=== PATIENT | female | born 1935 | race Caucasian/White ===

== ENCOUNTER → 2020-07-01 14:10 | Outpatient (BNVA) | payer MEDICARE, SELFPAY | PROVIDERS: PCP Family Medicine; Visit Provider Surgery | DX: K62.0 Anal polyp (principal) | CPT/HCPCS: 99212 ==

== ENCOUNTER → 2021-01-13 13:00 | Outpatient (BNVA) | payer MEDICARE, SELFPAY | PROVIDERS: PCP Family Medicine; Referring Provider Family Medicine; Visit Provider Surgery | DX: Z87.19 Personal history of other diseases of the digestive system (principal) | CPT/HCPCS: 46600; 99212 ==

== ENCOUNTER → 2021-11-25 12:42 | Outpatient (BNVA) | payer OTHER, SELFPAY | PROVIDERS: PCP Family Medicine; Visit Provider Surgery | DX: Z87.19 Personal history of other diseases of the digestive system (principal) | CPT/HCPCS: 46600; 99212 ==

== ENCOUNTER 2023-09-17 12:17 | Emergency (ER) | payer OTHER, SELFPAY ==
[2023-09-17 12:23] VITALS: BP 136/88; PULSE 122; O2SAT 99
[2023-09-17 12:27] VITALS: BP 173/95; PULSE 91; RESP 15; TEMP 36.6; O2SAT 98; BMI 25.1
[2023-09-17] MEDS: 0.9 % Sodium Chloride 1,000 ML 999 ML IV (12:48)
[2023-09-17] MEDS: Morphine Sulfate 2 MG/ML CARTRIDGE IVPUSH (12:51)
[2023-09-17] MEDS: valACYclovir HCL 1,000 MG TABLET 1000 MG PO (12:51)
[2023-09-17 12:56] LABS: Basophils Percent Auto 0.5 % (0-2); Eosinophils Absolute Auto 0.1 X10*3/uL (0.0-0.4); Eosinophils Percent Auto 1.6 % (0-4); Hematocrit 43.3 % (37.0-47.0); Hemoglobin 14.9 g/dl (12.0-16.0); Imm Gran Abs Auto 0.02 X10*3/uL (0.00-0.03); Imm Gran Pct Auto 0.3 % (0.0-0.4); Lymphocytes Absolute Auto 0.9 X10*3/uL (1.2-4.9); Lymphocytes Percent Auto 13.5 % (20-40); MANUAL DIFF FLAG NO; Mean Corpuscular HGB Conc 34.4 g/dl (31.0-35.0); Mean Corpuscular Hemoglobin 29.8 pg (27.0-33.0); Mean Corpuscular Volume 86.6 fL (80.0-98.0); Mean Platelet Volume 10.1 fL (9.4-12.3); Monocytes Absolute Auto 0.6 X10*3/uL (0.1-1.2); Monocytes Percent Auto 9.3 % (2-11); Neutrophils Absolute Auto 4.8 x10*3/uL (2.0-8.3); Neutrophils Percent Auto 74.8 % (45-73); Platelet Count 225 X10*3/uL (160-400); Red Cell Distribution Width 12.6 % (11.0-16.0); White Blood Count 6.4 X10*3/uL (4.8-10.8)
--- NOTE | 2023-09-17 13:06 | ED.GENADULT ---
HPI - General Adult General Chief complaint: General Medical Stated complaint: SHINGLES W/PAIN PER EMS Time Seen by Provider: 09/17/23 12:28 Source: patient, EMS and clerical investigator Mode of arrival: EMS Limitations: language barrier ( declined clerical investigator services) History of Present Illness ED Provider: Itzel Jones APRN HPI narrative: 88-year-old female with a history of hypertension and hyperlipidemia presents to the ER with complaints of painful rash to the left flank and left upper abdomen for the last 2 days. Per patient she started to experience some pain to the area about 4 days ago but did not notice the rash till yesterday. She denies any fevers, chills, flu-like symptoms. She has been taking Tylenol at home with continued pain. Per family the patient has not had much to eat or drink secondary to the pain. Related Data Home Medications ?Medication ?Instructions ?Recorded ?Confirmed amlodipine 10 mg-valsartan 160 1 tab PO DAILY 07/01/20 11/25/21 mg-hydrochlorothiazide 12.5 mg tablet aspirin 81 mg tablet,delayed 81 mg PO DAILY 07/01/20 11/25/21 release atorvastatin 20 mg tablet 20 mg PO DAILY 07/01/20 11/25/21 cholecalciferol (vitamin D3) 25 25 mcg PO DAILY 07/01/20 11/25/21 mcg (1,000 unit) tablet docusate sodium 100 mg capsule 100 mg PO BID 07/01/20 11/25/21 loratadine 10 mg tablet 10 mg PO DAILY 07/01/20 11/25/21 melatonin 3 mg tablet 3 mg PO BEDTIME PRN 07/01/20 11/25/21 Previous Rx's ?Medication ?Instructions ?Recorded hydrocortisone 2.5 % topical cream 1 appl PA BID PRN hemorrhoids #30 02/10/21 with perineal applicator grams hydrocortisone acetate 25 mg 25 mg PA BID PRN hemorrhoids #24 ea 08/13/21 rectal suppository (Anucort-HC) hydrocortisone acetate 25 mg 25 mg PA BID #24 ea 09/30/21 rectal suppository (Anusol-HC) hydrocortisone acetate 25 mg 25 mg PA BID PRN anal burning pain 11/25/21 rectal suppository (Anucort-HC) #24 ea gabapentin 100 mg capsule 100 mg PO TID PRN pain #15 caps 09/17/23 valacyclovir 1 gram tablet 1,000 mg PO BID #21 tabs 09/17/23 (Valtrex) Allergies Allergy/AdvReac Type Severity Reaction Status Date / Time Iodinated Contrast Media Allergy Intermediate SOB, Verified 09/17/23 12:29 [IV CONTRAST] WHEEZING Review of Systems Review of Systems: Yes all other systems are reviewed and are negative Constitutional: Constitutional: Reports no additional constitutional complaints, Denies body ache(s), Denies chills, Denies fever(s), Denies headache(s), Reports poor appetite and Denies weakness Eyes: Eyes: Reports no additional eye complaints and Denies change in vision ENT: Reports system reviewed and no additional complaints, except as documented, Denies dizziness, Denies headache(s), Denies nasal congestion, Denies nasal discharge and Denies neck pain Cardiovascular: Cardiovascular: Reports no additional cardiovascular complaints, Denies chest pain, Denies leg edema and Denies dyspnea Respiratory: Respiratory: Reports no additional respiratory complaints, Denies cough and Denies dyspnea Gastrointestinal: Gastrointestinal: Reports no additional gastrointestinal complaints, Denies abdominal pain, Denies diarrhea, Denies nausea and Denies vomiting Genitourinary: Genitourinary: Reports no additional female genitourinary complaints and Denies urinary incontinence Musculoskeletal: Musculoskeletal: Reports no additional musculoskeletal complaints, Denies back pain, Denies arthralgias, Denies joint swelling, Denies neck pain, Denies numbness and Denies tingling Integumentary/Breasts: Skin/Breast: Reports system reviewed and no additional complaints, except as docu and Reports rash Neurologic: Reports system reviewed and no additional complaints, except as documented, Denies Abnormal speech present, Denies dizziness, Denies headache(s), Denies numbness, Denies tingling and Denies weakness PMF Past Medical History Attestation statement: The following information was validated with the patient. Source: old records reviewed and nursing notes reviewed Medical History History of anal dysplasia Anal polyp Hyperlipidemia Hypertension Chronic constipation Surgical History H/O excision of mass History of laparoscopic cholecystectomy History of colonoscopy History of esophagogastroduodenoscopy (EGD) History of hemorrhoidectomy History of partial hysterectomy History of tubal ligation Social History Social History Advance Directives: Yes Advance Directives Information Provided: Yes Advance Directives on File: No Physical Exam ED Vital Signs: Vital Signs - 24 hr 09/17/23 12:27 09/17/23 13:50 Temperature 98 F 98 F Pulse Rate 91 78 Respiratory Rate 15 17 Blood Pressure 173/95 H 182/81 H Pulse Oximetry 98 98 Oxygen Delivery Method Room Air BMI result Body Mass Index 25.1 Const General: cooperative, healthy appearing, comfortable and no acute distress Orientation/consciousness: patient oriented x3 Limitations: no limitations HENMT Head: Yes normal to inspection Ears: hearing grossly normal bilaterally General nose exam: Normal external nose present Face and sinus: Yes normal facial exam Mouth: Normal oral and palatal mucosa present Throat: Yes posterior oropharynx normal Eyes General: appearance normal, both eyes and all related structures Pupils: Equal, round and reactive pupils present Neck Neck: Yes normal visual inspection Chest Chest palpation & inspection: normal inspection of the chest Resp Effort & Inspection: normal respiratory effort Auscultation: clear to auscultation bilaterally Cardio Rate: regular rate Rhythm: regular rhythm Peripheral pulses: Peripheral pulses 2+ throughout GI Inspection: Yes normal to inspection Palpation (GI): Soft to palpation and nontender Auscultation: normal bowel sounds Back/Spine/Pelvis Thoracic/Lumbar Spine: thoracic and lumbar spine normal to inspection Skin Other: There is a rash noted to the left flank and around to the left upper quadrant. It is blanchable but there are some vesicles present. It is quite painful on palpation. There is no sloughing noted. General skin exam: no rashes or lesions noted Neuro General: patient oriented x3, no focal motor deficits and normal sensation to monofilament Cranial nerves: Yes Equal, round and reactive pupils present Cognition (Neuro): normal cognition Speech: No Abnormal speech present Gait exam (Neuro): Normal gait present Motor exam (neuro): 5/5 motor strength present throughout Extrem General: Yes normal to inspection Medications Administered Discontinued Medications Generic Name Dose Route Start Last Admin Trade Name Freq PRN Reason Stop Dose Admin Sodium Chloride 1,000 mls @ 999 mls/hr 09/17/23 12:38 09/17/23 12:48 Ns IV 09/17/23 13:38 999 mls/hr .Q1H1M STA Administration Morphine Sulfate 2 mg 09/17/23 12:38 09/17/23 12:51 Morphine Sulfate 2 Mg/Ml Cartridge IVPUSH 09/17/23 12:39 2 mg ONCE ONE Administration Protocol Valacyclovir HCl 1,000 mg 09/17/23 12:38 09/17/23 12:51 Valacyclovir Hcl 1,000 Mg Tablet PO 09/17/23 12:39 1,000 mg ONCE ONE Administration Medical Decision Making Medical Decision Making [facility] Narrative: 88-year-old female with a history of hypertension and hyperlipidemia presents to the ER with complaints of painful rash to the left flank and left upper abdomen for the last 2 days. Per patient she started to experience some pain to the area about 4 days ago but did not notice the rash till yesterday. She denies any fevers, chills, flu-like symptoms. She has been taking Tylenol at home with continued pain. Per family the patient has not had much to eat or drink secondary to the pain. There is a rash noted to the left flank and around to the left upper quadrant. It is blanchable but there are some vesicles present. It is quite painful on palpation. There is no sloughing noted. This is consistent with herpes zoster. Patient will need to be discharged with Valtrex and analgesia. Family is concerned that she has had decreased p.o. intake and may be dehydrated. Therefore I will obtain labs and provide 1 L of IV fluid and pain control while she has here in the emergency room. Her vitals are stable. She has moist mucous membranes. I do anticipate that she will likely be discharged home. Differential Diagnosis Differential Diagnoses: The differential diagnosis associated with the presentation includes Herpes zoster Admission/Observation Consideration of admission/observation: Escalation of care including admission/observation considered labs are unremarkable. Patient is eating and drinking here. Her pain is well controlled. Can be discharged home with outpatient medication Lab Data [facility] Lab Attestation statement: I reviewed the patient's lab results. 09/17/23 12:46 09/17/23 12:46 Labs: Lab Results 09/17/23 Range/Units 12:46 WBC 6.4 (4.8-10.8) X10*3/uL RBC 5.00 (4.20-5.50) X10*6/uL Hgb 14.9 (12.0-16.0) g/dl Hct 43.3 (37.0-47.0) % MCV 86.6 (80.0-98.0) fL MCH 29.8 (27.0-33.0) pg MCHC 34.4 (31.0-35.0) g/dl RDW 12.6 (11.0-16.0) % Plt Count 225 (160-400) X10*3/uL MPV 10.1 (9.4-12.3) fL Immature Gran % (Auto) 0.3 (0.0-0.4) % Neut % (Auto) 74.8 H (45-73) % Lymph % (Auto) 13.5 L (20-40) % Robeson % (Auto) 9.3 (2-11) % Eos % (Auto) 1.6 (0-4) % Baso % (Auto) 0.5 (0-2) % Lymph # (Auto) 0.9 L (1.2-4.9) X10*3/uL Robeson # (Auto) 0.6 (0.1-1.2) X10*3/uL Eos # (Auto) 0.1 (0.0-0.4) X10*3/uL Baso # (Auto) 0.0 (0.0-0.2) X10*3/uL Abs Immat Gran (auto) 0.02 (0.00-0.03) X10*3/uL Absolute Neuts (auto) 4.8 (2.0-8.3) x10*3/uL Absolute Nucleated RBC 0.000 (0.0-0.012) X10*3/uL Nucleated RBC % (auto) 0.0 (0.0-0.2) /100WBC Sodium 139 (135-145) mmol/L Potassium 3.7 (3.3-5.1) mmol/L Chloride 103 (96-108) mmol/L Carbon Dioxide 23 (22-29) mmol/L Anion Gap 17 (12-20) BUN 8 L (9-16) mg/dL Creatinine 0.82 (0.5-1.4) mg/dL Estim Creat Clear Calc 36.0 Estimated GFR > 60 Random Glucose 143 H (60-115) mg/dL Calcium 10.2 (8.4-10.2) mg/dL Total Bilirubin 0.6 (0.0-1.0) mg/dL Direct Bilirubin 0.2 (0.0-0.5) mg/dL AST 21 (5-31) U/L ALT 17 (0-31) U/L Alkaline Phosphatase 55 (39-117) U/L Total Protein 7.9 (6.5-8.0) g/dL Albumin 4.8 (3.5-5.0) g/dL Independent Historian Clinical information obtained from an independent historian. History obtained from or confirmed by: EMS and Other ( son) Prescription Management I considered prescription management with: Antiviral Discharge Plan Discharge Clinical Impression: Herpes zoster Patient Disposition: Home, Self-Care Instructions: Shingles (ED) Additional Instructions: take the antiviral as prescribed. You will need to take it with food. You may take Tylenol for pain. We are also prescribing you and medication to help with nerve pain. This can sometimes make you feel sleepy. Prescriptions: New valacyclovir [Valtrex] 1 gram tablet 1,000 mg PO BID Qty: 21 0RF gabapentin 100 mg capsule 100 mg PO TID PRN (Reason: pain) Qty: 15 0RF No Action hydrocortisone 2.5 % cream with perineal applicator 1 appl PA BID PRN (Reason: hemorrhoids) Qty: 30 1RF hydrocortisone acetate [Anucort-HC] 25 mg suppository 25 mg PA BID PRN (Reason: hemorrhoids) Qty: 24 0RF hydrocortisone acetate [Anusol-HC] 25 mg suppository 25 mg PA BID Qty: 24 0RF aspirin 81 mg tablet,delayed release (DR/EC) 81 mg PO DAILY docusate sodium 100 mg capsule 100 mg PO BID loratadine 10 mg tablet 10 mg PO DAILY cholecalciferol (vitamin D3) 25 mcg (1,000 unit) tablet 25 mcg PO DAILY [id number]-[id number]-[id number] 10-160-12.5 mg tablet 1 tab PO DAILY atorvastatin 20 mg tablet 20 mg PO DAILY melatonin 3 mg tablet 3 mg PO BEDTIME PRN hydrocortisone acetate [Anucort-HC] 25 mg suppository 25 mg PA BID PRN (Reason: anal burning pain) Qty: 24 0RF Referrals: Milena Rodriguez MD [Primary Care Provider] - 1 week Interventions: ED Discharge Assessment Last Done: 09/17/23 13:50 Discharge Date/Time: 09/17/23 13:52 Print Language: Occitan
[2023-09-17 13:14] LABS: Alanine Aminotransferase 17 U/L (0-31); Albumin Level 4.8 g/dL (3.5-5.0); Alkaline Phosphatase 55 U/L (39-117); Anion Gap 17 (12-20); Aspartate Amino Transferase 21 U/L (5-31); Bilirubin Direct 0.2 mg/dL (0.0-0.5); Bilirubin Total 0.6 mg/dL (0.0-1.0); Blood Urea Nitrogen 8 mg/dL (9-16); Calcium 10.2 mg/dL (8.4-10.2); Carbon Dioxide 23 mmol/L (22-29); Chloride 103 mmol/L (96-108); Estimated Glomerular Filt Rate > 60; Glucose Random 143 mg/dL (60-115); Potassium 3.7 mmol/L (3.3-5.1); Sodium 139 mmol/L (135-145); Total Protein 7.9 g/dL (6.5-8.0)
[2023-09-17 13:50] VITALS: BP 182/81; PULSE 78; RESP 17; TEMP 36.6; O2SAT 98
== END 2023-09-17 13:52 | disposition home or self-care (01) ==
PROVIDERS: Nurse Practitioner Family; Emergency Provider Emergency Medicine; PCP Family Medicine
DX: B02.9 Zoster without complications (principal); R21 Rash and other nonspecific skin eruption; I10 Essential (primary) hypertension; E78.5 Hyperlipidemia, unspecified
CPT/HCPCS: 36415; 80048; 80076; 85025; 96374; 99283; 99284; J2270